=== PATIENT | male | born 1995 | race African-American/Black ===

== ENCOUNTER 2016-08-26 20:54 | Emergency (ER) | payer OTHER ==
[~2016-08-26] VITALS: Ht 167.6 cm; Wt 83.9 kg
[2016-08-26] MEDS ORDERED: NS 1,000 ML IV ONE (21:15)
[2016-08-26 21:48] LABS: BASO % 0.4 % (0.0-1.0); EOS # 0.2 K/mm3 (0.0-0.50); EOS % 2.3 % (0.0-3.0); LARGE UNSTAINED CELL # 0.2 K/mm3 (0.0-0.4); LARGE UNSTAINED CELL % 2.9 % (0.0-4.0); LYMPH # 2.7 K/mm3 (1.5-6.5); LYMPH % 32.4 % (24.0-44.0); MEAN CORPUSCULAR HEMOGLOBIN 26.6 pg (27.0-33.0); MEAN CORPUSCULAR HGB CONC 32.1 g/dl (32.0-36.5); MEAN CORPUSCULAR VOLUME 82.8 fl (80.0-96.0); MONO # 0.6 K/mm3 (0.0-0.8); MONO % 7.9 % (0.0-5.0); NEUTROPHILS # 4.2 K/mm3 (1.8-7.7); NEUTROPHILS % 54.1 % (36.0-66.0); PLATELET COUNT, AUTOMATED 174 k/mm3 (150-450); RED CELL DISTRIBUTION WIDTH 14.2 % (11.5-14.5); WHITE BLOOD COUNT 7.7 K/mm3 (4.0-10.0)
[2016-08-26 22:07] VITALS: BP 120/73
[2016-08-26 22:15] LABS: ANION GAP 5 MEQ/L (8-16); BLOOD UREA NITROGEN 12 MG/DL (7-18); CALCIUM LEVEL 8.9 MG/DL (8.5-10.1); CARBON DIOXIDE LEVEL 30 MEQ/L (21-32); CHLORIDE LEVEL 107 MEQ/L (98-107); CREATININE FOR GFR 1.59 MG/DL (0.70-1.30); FREE T4 0.66 NG/DL (0.78-1.33); GLUCOSE, FASTING 83 MG/DL (70-105); POTASSIUM SERUM 4.4 MEQ/L (3.5-5.1); SODIUM LEVEL 142 MEQ/L (136-145)
--- NOTE | 2016-08-27 01:03 | REP ---
Clinical: Syncope . Comparison: 08/27/2013 . Technique: PA and lateral. Findings: The mediastinum and cardiac silhouette are normal. The lung hagen are clear and without acute consolidation, effusion, or pneumothorax. The skeletal structures are intact and normal. Impression: 1. No acute cardiopulmonary process. Signed by Marco Wilson MD 08/27/2016 12:54 A
--- NOTE | 2016-08-27 09:41 | ECGEPIP ---
Stationary ECG Study [facility] - ED Test Date: 2016-08-26 Pat Name: JACK SEVERINO Department: Room: - Gender: M [employer]: elisabet : 1995 Requested By: CALIXTO PARKS Order Number: [id number] Reading MD: Montse Zelaya Measurements Intervals [place] Rate: 67 P: 44 NH: 141 QRS: 20 QRSD: 101 T: 23 QT: 366 QTc: 389 Interpretive Statements SINUS RHYTHM WITH SINUS ARRHYTHMIA ST ELEVATION, PROBABLY EARLY REPOLARIZATION, CLINICAL CORRELATION NO PRIOR FOR COMPARISON Electronically Signed On 08-27-2016 9:40:56 EDT by Montse Zelaya
== END 2016-08-26 23:06 | disposition home or self-care (01) ==
LOC: EDBD 20:54 → M ED 22:49
DX: E86.0 Dehydration (principal); R55 Syncope and collapse